=== PATIENT | male | born 1990 | race Caucasian/White ===

== ENCOUNTER 2016-08-22 04:03 | Emergency (ER) | payer OTHER ==
[~2016-08-22] VITALS: Ht 182.9 cm; Wt 156.0 kg
[~2016-08-22 04:03] MED LIST: AMOXICILLIN875 M1 PO; AMOXIL500 MG PO; AUGMENTIN 875 M1 TAB PO; AUGMENTIN 875-1 EACH PO; BACTRIM DS 8001 TAB PO; IBUPROFEN800 M1 PO; IMODIUM 2 MG. CA2 MG PO; KEFLEX500 MG PO; LOPRESSOR 25MG25 MG PO; PENICILLIN VK500 MG PO; PERCOCET 325 MG1 TA2 PO; PERCOCET 5-3251 EACH PO; TRAMADOL HCL50 M1 PO; ZOFRAN ODT4 MG SL
[2016-08-22 04:15] VITALS: BP 149/90
--- NOTE | 2016-08-22 04:51 | ED GENERAL ADULT ---
History of Present Illness General Chief Complaint: General Adult Stated Complaint: OVERDOSE Source: patient, family Exam Limitations: no limitations Vital Signs & Intake/Output Vital Signs & Intake/Output Vital Signs Date Time Temp Pulse Resp B/P Pulse O2 O2 Flow FiO2 Ox Delivery Rate 08/22 0444 Room Air 08/22 0415 99.6 83 18 149/90 98 Room Air Allergies Coded Allergies: NO KNOWN ALLERGIES (10/07/15) Reconcile Medications Amoxicillin (Amoxil) 500 MG CAP 1 TAB PO TID FINGER INFECTION Amoxicillin 875 MG TABLET 1 TAB PO BID INFECTION Amoxicillin/Potassium Clav (Augmentin 875-125 Tablet) 1 EACH TABLET 1 TAB PO BID DENTAL INFECTION Cephalexin (Keflex) 500 MG CAP 1 TAB PO 4 TIMES/DAY INFECTION Ibuprofen 800 MG TABLET 1 TAB PO TID PRN PAIN Loperamide HCl (Loperamide) 2 MG CAP 1 TAB PO SEE ADMIN CRITERIA PRN DIARRHEA 2 TABS AFTER NEXT LOOSE STOOL THEN 1 TAB AFTER EACH LOOSE STOOL UP TO 7 PER DAY Metoprolol Tartrate (Lopressor) 25 MG TAB 1 TAB PO BID HYPERTENSION Ondansetron (Zofran Odt) 4 MG ODT 1 ODT SL Q6P PRN NAUSEA Oxycodone HCl/Acetaminophen (Percocet 5-325 MG Tablet) 1 EACH TABLET 1 TAB PO TID PRN PAIN TEN...[id number] Penicillin V Potassium 500 MG TAB 1 TAB PO 4 TIMES/DAY DENTAL INFECTION Sulfamethoxazole/Trimethopri (Bactrim Ds 800 MG-160 MG) 1 TAB TAB 1 TAB PO BID FINGER INFECTION Tramadol HCl 50 MG TABLET 1 TAB PO Q6 PRN BREAKTHROUGH PAIN Triage Note: PT FROM HOME C/O PANIC ATTACK. PT STATES THAT AROUND 0100 PT TOOK HIS LAST DOSE OF TRAMADOL 50MG FOR WISDOM TEETH PAIN AND PT STATES "I AM SUPPOSE TO TAKE THE TRAMADOL EVERY 8 HOURS BUT INSTEAD I TOOK THE TRAMADOL EVERY 5 HOURS SO I TOOK 3 PILLS ALL TOGETHER, I LOOKED UP THE SYMPTOMS ONLINE FOR A PANIC ATTACK AND I THINK IM HAVING ONE BC I TOOK TOO MANY TRAMADOL." PT APPEARS CALM IN TRIAGE, NO SIGNS OF PANIC ATTACK NOTED, VSS. Triage Nurses Notes Reviewed? yes HPI: Patient is having pain in his wisdom tooth so his dentist put him on tramadol. The bottle states to take one pill every 8 hours as needed for pain but he was taking 1 pill every 5 hours because of the pain. The patient wanted to make sure that he was not doing any damage in taking it that often. Patient denies any chest pain or shortness of breath. There's no palpitations. Patient did an Internet search for the side effects of tramadol and became nervous and what he read. Past History Travel History Traveled to [place] past 21 day No Medical History Any Pertinent Medical History? 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 No Review of Systems Review of Systems Constitutional: Reports: no symptoms. EENTM: Reports: see HPI, tooth pain. Respiratory: Reports: no symptoms. Cardiovascular: Reports: no symptoms. GI: Reports: no symptoms. Musculoskeletal: Reports: no symptoms. Neurological/Psychological: Reports: see HPI, anxiety. Physical Exam Physical Exam General Appearance: well developed/nourished, alert, awake Head: atraumatic Eyes: Bilateral: PERRL, EOMI. Neck: normal inspection, supple Respiratory: normal breath sounds, chest non-tender, no respiratory distress, lungs clear Cardiovascular: regular rate/rhythm, normal peripheral pulses Gastrointestinal: normal bowel sounds, soft, non-tender, no organomegaly Extremities: normal inspection, normal capillary refill, normal range of motion, no edema Neurologic/Psych: no motor/sensory deficits, awake, alert, oriented x 3, normal gait, normal mood/affect Core Measures ACS in differential dx? No CVA/TIA Diagnosis: No Severe Sepsis Present: No Septic Shock Present: No Progress Differential Diagnoses I considered the following diagnoses in my evaluation of the patient: [ Medication anxiety] Plan of Care: Discussed with the patient the side effects of tramadol and patient feels much more comfortable. Initial ED EKG: none Departure Departure Disposition: HOME OR SELF CARE Condition: Stable Clinical Impression Primary Impression: Anxiety Referrals: KINZA OTT MD (PCP/Family) Additional Instructions: RETURN IF SYMPTOMS WORSEN OR FOR ANY CONCERNS Departure Forms: Customer Survey General Discharge Information Critical Care Note Critical Care Note Critical Care Time: non-applicable
== END 2016-08-22 04:59 ==
LOC: ERH 04:03
DX: F41.9 Anxiety disorder, unspecified (principal)

== ENCOUNTER 2016-08-24 03:19 | Emergency (ER) | payer OTHER ==
[~2016-08-24] VITALS: Ht 185.4 cm; Wt 155.1 kg
[2016-08-24 03:30] VITALS: BP 147/87
[2016-08-24] MEDS ORDERED: PERCOCET 5-3251 EACH PO (03:37)
[2016-08-24] MEDS ORDERED: AUGMENTIN 875-1 EACH PO (03:37)
--- NOTE | 2016-08-24 03:37 | ED THROAT/DENTAL COMPLAINT ---
History of Present Illness General Chief Complaint: Sore Throat, Dental Pain Stated Complaint: PT C/O LT SIDE FACIAL SWELLING ALSO DENTAL PAIN Source: patient, old records Exam Limitations: no limitations Vital Signs & Intake/Output Vital Signs & Intake/Output Vital Signs Date Time Temp Pulse Resp B/P Pulse O2 O2 Flow FiO2 Ox Delivery Rate 08/24 0330 99.8 81 16 147/87 98 Room Air Allergies Coded Allergies: NO KNOWN ALLERGIES (10/07/15) Reconcile Medications Amoxicillin (Amoxil) 500 MG CAP 1 TAB PO TID FINGER INFECTION Amoxicillin 875 MG TABLET 1 TAB PO BID INFECTION Amoxicillin/Potassium Clav (Augmentin 875-125 Tablet) 1 EACH TABLET 1 TAB PO BID DENTAL INFECTION Amoxicillin/Potassium Clav (Augmentin 875-125 Tablet) 875 MG-125 MG TABLET 1 TAB PO BID DENTAL INFECTION Cephalexin (Keflex) 500 MG CAP 1 TAB PO 4 TIMES/DAY INFECTION Ibuprofen 800 MG TABLET 1 TAB PO TID PRN PAIN Loperamide HCl (Loperamide) 2 MG CAP 1 TAB PO SEE ADMIN CRITERIA PRN DIARRHEA 2 TABS AFTER NEXT LOOSE STOOL THEN 1 TAB AFTER EACH LOOSE STOOL UP TO 7 PER DAY Metoprolol Tartrate (Lopressor) 25 MG TAB 1 TAB PO BID HYPERTENSION Ondansetron (Zofran Odt) 4 MG ODT 1 ODT SL Q6P PRN NAUSEA Oxycodone HCl/Acetaminophen (Percocet 5-325 MG Tablet) 1 EACH TABLET 1 TAB PO TID PRN PAIN TEN...[id number] Oxycodone HCl/Acetaminophen (Percocet 5-325 MG Tablet) 5 MG-325 MG TABLET 1-2 TAB PO Q6P PRN PAIN Penicillin V Potassium 500 MG TAB 1 TAB PO 4 TIMES/DAY DENTAL INFECTION Sulfamethoxazole/Trimethopri (Bactrim Ds 800 MG-160 MG) 1 TAB TAB 1 TAB PO BID FINGER INFECTION Tramadol HCl 50 MG TABLET 1 TAB PO Q6 PRN BREAKTHROUGH PAIN Triage Note: 25yo MALE TO TRIAGE W/CO L SIDED FACIAL SWELLING AND L WISDOM TOOTH PAIN. STATES HE "HAS BEEN TAKING AMOX 500MG TID" Triage Nurses Notes Reviewed? yes HPI: Patient is on amoxicillin for dental infection. This morning at work patient noticed that the left side of his face was swollen. Patient is also complaining of a throbbing pain to his left lower was some tooth. The pain is constant and decreases with tramadol but does not go away entirely. There is no radiation. The pain increases when he closes his mouth. Patient states that he does not like the way the tramadol makes him feel so he does not like to take it. There are no fevers Or chills. There is no difficulty breathing or swallowing. There is no tongue swelling. Past History Travel History Traveled to [place] past 21 day No Medical History Any Pertinent Medical History? 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 No Review of Systems Review of Systems Constitutional: Reports: no symptoms. EENTM: Reports: see HPI, tooth pain. Respiratory: Reports: no symptoms. Cardiovascular: Reports: no symptoms. Musculoskeletal: Reports: no symptoms. Neurological/Psychological: Reports: no symptoms. Physical Exam Physical Exam General Appearance: well developed/nourished, alert, awake, anxious, mild distress Head: atraumatic Eyes: Bilateral: PERRL, EOMI. Mouth/Throat: dental tenderness Neck: normal inspection, supple, NO LYMPHADENOPATHY Cardiovascular/Respiratory: normal breath sounds, normal peripheral pulses, regular rate/rhythm, no respiratory distress Neurologic/Psych: no motor/sensory deficits, awake, alert, oriented x 3, normal gait, normal mood/affect Core Measures ACS in differential dx? No Severe Sepsis Present: No Septic Shock Present: No Progress Differential Diagnosis: carious tooth, odontogenic abscess Plan of Care: Change antibiotics Departure Departure Disposition: HOME OR SELF CARE Condition: Stable Clinical Impression Primary Impression: Dental infection Referrals: KINZA OTT MD (PCP/Family) Additional Instructions: FOLLOW UP WITH YOUR DENTIST RETURN IF SYMPTOMS WORSEN OR FOR ANY CONCERS Departure Forms: Customer Survey General Discharge Information Prescriptions: Current Visit Scripts Amoxicillin/Potassium Clav (Augmentin 875-125 Tablet) 1 TAB PO BID #20 TAB Oxycodone HCl/Acetaminophen (Percocet 5-325 MG Tablet) 1-2 TAB PO Q6P PRN PAIN #20 TAB
== END 2016-08-24 03:47 ==
LOC: ERH 03:19
DX: K04.7 Periapical abscess without sinus (principal)

== ENCOUNTER 2016-08-30 03:59 | Emergency (ER) | payer OTHER ==
[~2016-08-30] VITALS: Ht 185.4 cm; Wt 155.1 kg
[2016-08-30 04:10] VITALS: BP 148/70
[2016-08-30] MEDS ORDERED: IBUPROFEN800 M1 PO (04:18)
--- NOTE | 2016-08-30 04:18 | ED THROAT/DENTAL COMPLAINT ---
History of Present Illness General Chief Complaint: Sore Throat, Dental Pain Stated Complaint: PT SEEN MULTI X'S FOR DENTAL PAIN STILL C/O PAIN Source: patient, old records Exam Limitations: no limitations Vital Signs & Intake/Output Vital Signs & Intake/Output Vital Signs Date Time Temp Pulse Resp B/P Pulse O2 O2 Flow FiO2 Ox Delivery Rate 08/30 0410 98.4 89 20 148/70 99 Room Air Allergies Coded Allergies: NO KNOWN ALLERGIES (10/07/15) Reconcile Medications Amoxicillin (Amoxil) 500 MG CAP 1 TAB PO TID FINGER INFECTION Amoxicillin 875 MG TABLET 1 TAB PO BID INFECTION Amoxicillin/Potassium Clav (Augmentin 875-125 Tablet) 1 EACH TABLET 1 TAB PO BID DENTAL INFECTION Amoxicillin/Potassium Clav (Augmentin 875-125 Tablet) 875 MG-125 MG TABLET 1 TAB PO BID DENTAL INFECTION Cephalexin (Keflex) 500 MG CAP 1 TAB PO 4 TIMES/DAY INFECTION Ibuprofen 800 MG TABLET 1 TAB PO TID PRN PAIN Ibuprofen 800 MG TABLET 1 TAB PO TID PRN PAIN Loperamide HCl (Loperamide) 2 MG CAP 1 TAB PO SEE ADMIN CRITERIA PRN DIARRHEA 2 TABS AFTER NEXT LOOSE STOOL THEN 1 TAB AFTER EACH LOOSE STOOL UP TO 7 PER DAY Metoprolol Tartrate (Lopressor) 25 MG TAB 1 TAB PO BID HYPERTENSION Ondansetron (Zofran Odt) 4 MG ODT 1 ODT SL Q6P PRN NAUSEA Oxycodone HCl/Acetaminophen (Percocet 5-325 MG Tablet) 1 EACH TABLET 1 TAB PO TID PRN PAIN TEN...[id number] Oxycodone HCl/Acetaminophen (Percocet 5-325 MG Tablet) 5 MG-325 MG TABLET 1-2 TAB PO Q6P PRN PAIN Penicillin V Potassium 500 MG TAB 1 TAB PO 4 TIMES/DAY DENTAL INFECTION Sulfamethoxazole/Trimethopri (Bactrim Ds 800 MG-160 MG) 1 TAB TAB 1 TAB PO BID FINGER INFECTION Tramadol HCl 50 MG TABLET 1 TAB PO Q6 PRN BREAKTHROUGH PAIN Triage Note: PT PRESENTS TO TRIAGE C/O OF DENTAL PAIN. PT STATES HE HAS AN APPT WITH HIS DENTIST ON 09/05. PT STATES WHEN HE WAS LAST HERE FOR DENTAL PAIN HE WAS GIVEN PERCOCET BUT RAN OUT. Triage Nurses Notes Reviewed? yes HPI: Patient presents with continued toothache in his left lower jaw. Patient states that he has run out of the Percocet that he was given last time and is still taking the antibiotics. Patient states the swelling has improved however the pain continues. The pain worsens with cold liquids. Patient has an appointment to see his dentist on the . The pain is 10 out of 10. There is no radiation of the pain. The pain is throbbing in nature. There are no fevers or chills. No difficulty swallowing. Past History Travel History Traveled to [place] past 21 day No Medical History Any Pertinent Medical History? 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 No Review of Systems Review of Systems Constitutional: Reports: no symptoms. EENTM: Reports: see HPI, tooth pain. Respiratory: Reports: no symptoms. Cardiovascular: Reports: no symptoms. GI: Reports: no symptoms. Neurological/Psychological: Reports: no symptoms. Physical Exam Physical Exam General Appearance: well developed/nourished, alert, awake, anxious, moderate distress Head: atraumatic Eyes: Bilateral: PERRL, EOMI. Mouth/Throat: dental tenderness Neck: normal inspection, supple, full range of motion Cardiovascular/Respiratory: normal breath sounds, normal peripheral pulses, regular rate/rhythm, no respiratory distress Neurologic/Psych: no motor/sensory deficits, awake, alert, oriented x 3, normal gait, normal mood/affect Core Measures ACS in differential dx? No Severe Sepsis Present: No Septic Shock Present: No Progress Differential Diagnosis: carious tooth, odontogenic abscess, alma delia-tonsillar abscess Plan of Care: Current Medications Sig/Yudith Start time Last Medication Dose Stop Time Status Admin Ibuprofen 800 MG ONCE ONE 08/30 414 UNVr (Motrin) 08/30 415 Departure Departure Disposition: HOME OR SELF CARE Condition: Stable Clinical Impression Primary Impression: Pain, dental Referrals: KINZA OTT MD (PCP/Family) Additional Instructions: Follow-up with your dentist. Take Motrin as needed. Return if symptoms worsen or for any concerns. Departure Forms: Customer Survey General Discharge Information Prescriptions: Current Visit Scripts Ibuprofen 1 TAB PO TID PRN PAIN #30 TAB
== END 2016-08-30 04:22 ==
LOC: ERH 03:59
DX: K08.89 Other specified disorders of teeth and supporting structures (principal)